=== PATIENT | male | born 1940 | race Caucasian/White ===

== ENCOUNTER 2017-01-31 15:02 | Outpatient (CLI) | payer MEDICARE, OTHER | END 2017-01-31 15:03 | disposition home or self-care (01) | LOC: LAB.WCP 15:02 | PROVIDERS: ATTEND Family Medicine | DX: Z12.5 Encounter for screening for malignant neoplasm of prostate (principal) | CPT/HCPCS: 36415; G0103; 84153 ==

== ENCOUNTER 2019-11-26 06:12 | Day surgery (SDC) | payer MEDICARE, OTHER ==
[2019-11-26] MEDS ORDERED: CYCLOPENTOLATE 1% OPHTH DROPS 2 ML ONE (06:28)
[2019-11-26] MEDS ORDERED: PROPARACAINE 0.5% OPHTH DROPS 15 ML ONE (06:28)
[2019-11-26] MEDS ORDERED: PHENYLEPHRINE 2.5% OPHTH 2 ML DROPS ONE (06:28)
[2019-11-26] MEDS ORDERED: KETOROLAC 0.45% OPHTH DROPS ONE (06:28)
[2019-11-26] MEDS ORDERED: LACTATED RINGERS 500 ML IV ONE ×2 (06:45→07:51)
--- NOTE | 2019-11-26 07:11 | ANESTHESIA ---
Pre-Anesthesia VS, & Labs - Diagnosis left senile combined cataract - Procedure left cataract extraction with IOL - NPO >8 hours - Lab Results Current Lab Results: Laboratory Tests 11/26/19 06:41: POC Whole Bld Glucose 102 H Home Medications and Allergies Finasteride 5 mg PO HS 10/11/12 Gabapentin [Neurontin] 300 mg PO HS 10/11/12 Metformin HCl [Fortamet] 500 mg PO BID 10/11/12 Simvastatin 40 mg PO HS 10/11/12 Tamsulosin [Flomax] 0.4 mg PO HS 10/11/12 Allergies/Adverse Reactions: Allergies Allergy/AdvReac Type Severity Reaction Status Date / Time aspirin AdvReac Intermediate Emesis Verified 10/11/12 10:37 codeine [Codeine] AdvReac Intermediate woozy Verified 10/11/12 10:33 feeling Anes History & Medical History - Anesthetic History Anesthesia Complications: reports: No previous complications - Medical History Cardiovascular: reports: Hypertension, High cholesterol, Arrhythmia Pulmonary: reports: None Urinary: reports: Benign prostate hypertrophy Musculoskeletal: reports: Chronic back pain Endocrine/Autoimmune: reports: Type 2 diabetes (pre) Skin: reports: None Smoking Status: Never smoker - Surgical History General: Colonoscopy Eyes Ears Nose Throat (EENT): Cataracts Exam General: Alert, Oriented x3 Dental: WNL Mouth Opening: Greater than 4 Fingerbreadths Mallampati classification: II Thyromental Distance: greater than 6 cm Respiratory: Lungs clear Cardiovascular: Regular rate, Normal S1, Normal S2 Plan Anesthesia Type: MAC Consent for Procedure(s) Verified and Reviewed: Yes Code Status: Attempt Resuscitation ASA classification: 2-Mild systemic disease Is this case an emergency?: No
[2019-11-26] MEDS ORDERED: EPINEPHrine 1 MG/ML AMP ONE ×2 (07:15→07:22)
[2019-11-26] MEDS ORDERED: TRIAMCIN/MOXIFLOX OPHTHALMIC 0.6 ML VIAL IO ONE ×2 (07:15→07:34)
[2019-11-26] MEDS ORDERED: BRIMONIDINE 0.2% OPHTH DROPS 5 ML ONE (07:15)
[2019-11-26] MEDS ORDERED: BSS/LIDOCAINE/EPINEPHRINE 1 ML SYRINGE ONE (07:16)
[2019-11-26] MEDS ORDERED: VANCOMYCIN OPHTHALMI 8MG/0.8ML 8 MG/0.8 ML SYRINGE IO ONE ×2 (07:16→07:34)
[2019-11-26] MEDS ORDERED: TIMOLOL 0.5% OPHTH DROPS ONE (07:16)
[2019-11-26] MEDS ORDERED: MIDAZOLAM 2 MG/2 ML VIAL IVP ONE (07:29)
[2019-11-26] MEDS ORDERED: PROPARACAINE 0.5% OPHTH DROPS 15 ML EACHEYE ONE (07:34)
[2019-11-26] MEDS ORDERED: EPINEPHrine 1 MG/ML AMP IR ONE (07:34)
[2019-11-26] MEDS ORDERED: TIMOLOL 0.5% OPHTH DROPS OPTH ONE (07:34)
[2019-11-26] MEDS ORDERED: BSS/LIDOCAINE/EPINEPHRINE 1 ML SYRINGE IO ONE (07:34)
[2019-11-26] MEDS ORDERED: BRIMONIDINE 0.2% OPHTH DROPS 5 ML OPTH ONE (07:34)
[2019-11-26] MEDS ORDERED: CHONDR SULF/HYALURONATE SYRINGE IO ONE (07:34)
--- NOTE | 2019-11-26 08:04 | OPERATIVE REPORT ---
DATE OF SERVICE: 11/26/2019 Physician: Brian Rolon MD PREOPERATIVE DIAGNOSIS: Visually significant cataract, left eye. Cataract surgery was performed on the right eye on 03/04/2008 elsewhere. POSTOPERATIVE DIAGNOSIS: Visually significant cataract, left eye. Cataract surgery was performed on the right eye on 03/04/2008 elsewhere. PROCEDURE: Phacoemulsification with posterior chamber intraocular lens implant, left eye. SURGEON: Brian Rolon MD ANESTHESIA: Monitored anesthesia care. COMPLICATIONS: None. OPERATIVE INDICATIONS: This is a 79-year-old man with progressive vision loss in the left eye due to 3+ nuclear sclerotic, 1+ cortical and 2+ posterior subcapsular cataract. Best corrected visual acui ty was 20/40, with glare to hand motion vision in the left eye. INDICATIONS FOR SURGERY: Difficulty seeing words on a computer screen, difficulty driving in low lig ht or at night, difficulty driving at night because of headlights from other vehicles, and difficulty with glare or bright lights in any situation. He was consented at length concerning risks and benef its of cataract surgery, after which he expressed a desire to proceed with surgery. DESCRIPTION OF PROCEDURE: Patient was taken to OR #3 and placed under monitored anesthesia care. A surgical timeout was conducted confirming correct patient, correct procedure, and correct surgical si te. He was given topical anesthesia, and prepped and draped in the usual sterile fashion. The eye w as entered at the 6 and 3 o'clock positions. Intracameral Shugarcaine was injected into the anterior chamber, followed by Viscoat. A continuous-tear curvilinear capsulorrhexis was performed. The nucl eus was hydrodissected and phacoemulsified. The cortex was evacuated using automated infusion and as piration. Provisc was injected in the capsular bag, and a 24.0 diopter intraocular lens inserted in the bag. Infusion and aspiration was used to evacuate the viscoelastic materials. The eye was infla bev to physiologic pressure using balanced salt solution and found to be watertight. Approximately 0 .25 mL of a mixture of triamcinolone and moxifloxacin was injected trans sclerally into the vitreous in the inferotemporal quadrant. An additional 0.55 mL of a mixture of triamcinolone, moxifloxacin an d vancomycin was injected subconjunctivally in the superior quadrant for infection and inflammation p rophylaxis. Wound integrity was checked with Weck-Elsa sponges. The patient was taken from the [facility] in good condition and given postoperative instructions. TD: 11/26/2019 07:58
[2019-11-26 08:09] VITALS: BP 116/54
--- NOTE | 2019-11-26 09:12 | ANESTHESIA POST OP EVALUATION ---
Anesthesia Post Eval - Post Anesthesia Eval Vitals: Last Vital Signs Temp 36.4 C L 11/26/19 08:09 Pulse 56 L 11/26/19 08:09 Resp 12 11/26/19 08:09 BP 116/54 L 11/26/19 08:09 Pulse Ox 99 11/26/19 08:09 CV Function Including HR & BP: positive: Stable Pain Control: positive: Satisfactory Nausea & Vomiting: positive: Negative Mental Status: positive: Patient Participates Respiratory Status: Airway Patent Hydration Status: Satisfactory Anesthesia Complications: positive: None
== END 2019-11-26 06:13 | disposition home or self-care (01) ==
LOC: SDS 06:12
PROVIDERS: ATTEND Ophthalmology
PROC: 08RK3JZ Replacement of Left Lens with Synthetic Substitute, Percutaneous Approach (ICD-10-PCS; principal; 2019-11-26 07:30)
DX: E11.36 Type 2 diabetes mellitus with diabetic cataract (principal); H25.812 Combined forms of age-related cataract, left eye; I10 Essential (primary) hypertension; E78.00 Pure hypercholesterolemia, unspecified; N40.0 Benign prostatic hyperplasia without lower urinary tract symptoms
CPT/HCPCS: 66984; A9270; J3490; J7120; V2632